=== PATIENT | female | born 1995 | race Caucasian/White ===

== ENCOUNTER 2021-07-02 07:09 | Emergency (ER) | payer OTHER, SELFPAY ==
[2021-07-02 07:21] VITALS: BP 125/92; PULSE 100; RESP 16; TEMP 36.8; O2SAT 97; BMI 20.7
--- NOTE | 2021-07-02 07:30 | ED_ITS ---
HPI - URI/Sore Throat General Chief Complaint: Upper Respiratory Symptoms Stated Complaint: sore throat Time Seen by Provider: 07/02/21 07:21 Source: patient Mode of arrival: ambulatory Limitations: no limitations History of Present Illness HPI Narrative: This is a 25 years old female presented to the emergency department with a chief complaint of a sore throat, denies any fever chills vomiting, she is taking marked Macrodantin for urinary tract infection MD elicited complaint: sore throat Onset (ago): day(s) (2) Consistency: constant Severity: moderate Able to tolerate fluids by mouth: Yes Exacerbating factors: nothing Relieving factors: nothing Associated symptoms: denies other symptoms Related Data Previous Rx's Medication Instructions Recorded naproxen 500 mg tablet (Naprosyn) 500 mg PO BID PRN #20 tab 07/02/21 Allergies Allergy/AdvReac Type Severity Reaction Status Date / Time famotidine [From PEPCID] Allergy Severe DIFFICULTY Unverified 04/15/20 18:27 BREATHING amoxicillin [AMOXICILLIN] Allergy Intermediate CHEST PAIN Unverified 04/15/20 18:27 [facility] Social History Social History Alcohol intake: unknown Patient Tobacco Use Status: Tobacco use Unknown Use of substances other than those prescribed or required for medical reasons: Unknown Advance Directives: No Advance Directives Information Provided: Yes Physical Exam Vital Signs: Vital Signs: Last Vital Signs Temp 98.3 F 07/02/21 07:21 Pulse 100 07/02/21 07:21 Resp 16 07/02/21 07:21 BP 125/92 H 07/02/21 07:21 Pulse Ox 97 07/02/21 07:21 BMI result Body Mass Index 20.7 Const: Other: On exam she looks well she has no toxic-appearing General: cooperative Nutritional Appearance: average body habitus Orientation/consciousness: patient oriented x3 HENMT: Other: There is redness in the posterior pharynx and no exudation seen Head: Yes normal to inspection Ears: hearing grossly normal bilaterally General nose exam: Normal external nose present Face and sinus: Yes normal facial exam Mouth: Normal oral and palatal mucosa present Teeth and gin giva: dentition normal Throat: Yes tonsils normal, Yes uvula midline and Yes other (redness pharynx) Neck: Neck: Yes normal visual inspection, Yes full ROM and Yes no lymphadenopathy Chest: Chest palpation & inspection: normal inspection of the chest Resp: Effort & Inspection: normal respiratory effort Auscultation: clear to auscultation bilaterally Cardio: Jugular venous distension: no JVD Palpation: normal PMI Rate: regular rate GI: Inspection: Yes normal to inspection Palpation (GI): Soft to palpation, not firm, nontender and no guarding Skin: General skin exam: no rashes or lesions noted and elasticity normal Rashes: no rashes Neuro: General: patient oriented x3 MDM - URI/Sore Throat Lab Data Labs: Lab Results 07/02/21 07/02/21 Range/Units 07:28 07:28 COVID-19 ([facility]US MANUEL) Negative (Negative) COVID-19 Clin Com See Note S. pyogenes GrpA KIRAN Negative (Negative) Discharge Plan Discharge Clinical Impression: Pharyngitis Patient Disposition: Home, Self-Care Instructions: Pharyngitis (ED) Additional Instructions: Drink lot of fluids, rest, take naproxen twice a day as needed for pain (we sent the prescription to [facility]) Prescriptions: New naproxen [Naprosyn] 500 mg tablet 500 mg PO BID PRN (Reason: PAIN) Qty: 20 RF: 0 Interventions: ED Discharge Assessment Last Done: 07/02/21 08:22 Discharge Date/Time: 07/02/21 08:23
[2021-07-02 07:43] LABS: IDNOW Serial# 9DD0AD1C; Strep A Nucleic Acid Negative (Negative)
[2021-07-02 07:51] LABS: COVID-19 Test Negative (Negative)
== END 2021-07-02 08:23 | disposition home or self-care (01) ==
PROVIDERS: Emergency Provider Emergency Medicine; PCP Internal Medicine
DX: J02.9 Acute pharyngitis, unspecified (principal); Z20.822 Contact with and (suspected) exposure to COVID-19
CPT/HCPCS: 36415; 87635; 87651; 99283; 99284